=== PATIENT | female | born 1990 ===

== ENCOUNTER 2016-10-03 17:12 | Emergency (ER) | payer OTHER ==
[2016-10-03] MEDS ORDERED: TYLENOL PO ONE (17:59)
[2016-10-03] MEDS ORDERED: MORPHINE IM ONE (17:59)
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
--- NOTE | 2016-10-03 18:57 | Cat Scan Report ---
FINAL REPORT PROCEDURE: CT head without contrast. TECHNIQUE: Computerized tomography of the head was performed without contrast material. HISTORY: Headache. COMPARISON: No prior studies are available for comparison. FINDINGS: The ventricles are normal in size. The doshi matter and white matter appear normal. There are no mass lesions. There is no intracranial hemorrhage. The calvarium appears intact. The mastoid air cells are clear. There is a tiny amount of fluid in the right sphenoid sinus. IMPRESSION: Normal study of the brain. Mild right sphenoid sinusitis.
[2016-10-03] MEDS ORDERED: TORADOL IM ONE (19:06)
[2016-10-03 19:39] VITALS: BP 104/61
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
== END 2016-10-03 19:50 | disposition home or self-care (01) ==
LOC: ED 17:12
DX: R51 Headache (principal); M79.671 Pain in right foot; V49.59XA Passenger injured in collision with other motor vehicles in traffic accident, initial encounter; Y93.9 Activity, unspecified; Y92.9 Unspecified place or not applicable; Y99.9 Unspecified external cause status
CPT/HCPCS: 70450; 73600; 73620; 96372; 99284; J1885; J2270